=== PATIENT | female | born 1990 | race Caucasian/White ===

== ENCOUNTER 2024-10-16 14:24 | Emergency (ER) | payer MEDICAID ==
[~2024-10-16] VITALS: Ht 162.6 cm; Wt 86.1 kg
[2024-10-16 14:30] VITALS: BP 149/92; PULSE 78; RESP 16; TEMP 97.9; O2SAT 97
[2024-10-16] MEDS ORDERED: BENZ100C86 MT (17:11)
[2024-10-16] MEDS: ACETAMINOPHEN 325MG TABLET PO ONE (17:12)
== END 2024-10-16 15:15 | disposition home or self-care (01) ==
LOC: ER 14:24
DX: B34.9 Viral infection, unspecified (principal)
CPT/HCPCS: 71045; 99283